=== PATIENT | female | born 1985 | race Caucasian/White ===

== ENCOUNTER 2023-09-23 13:42 | Emergency (ER) | payer OTHER ==
[2023-09-23 14:14] VITALS: TEMP 98.4; O2SAT 100
--- NOTE | 2023-09-23 14:41 | ERPHSYRPT ---
- History of Present Illness Time Seen by Provider: 09/23/23 13:59 Source: patient Exam Limitations: no limitations Patient Subjective Stated Complaint: Dizziness Triage Nursing Assessment: Patient ambulated back to ED and transferred self to bed. Patient A+O X3. Patient's skin pink, warm and dry. Patient complains of intermittent dizziness, headache and N/V since yesterday. Patient denies pain or discomfort. Physician History: 38-year-old female presented in the ER with complains of intermittent dizziness and lightheadedness since yesterday. 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 She had to work several hour which mostly in while standing. She was there earlier and started to feel lightheaded as if she was going to pass out. Patient thinks she probably got overheated. She has nausea and occasionally vomiting. It has happened multiple times in the past but she has never seek any medical attention before. Patient denies any headache currently. Denies any chest pain palpitations or shortness of breath associated with it. No fever or chills reported. Patient reports she was sweating when this happened. Allergies/Adverse Reactions: No Known Drug Allergies Allergy (Verified 09/23/23 14:05) Home Medications: Ativan 1 MG 1 mg PO BID PRN 03/11/12 [History] Axert 1 tab PO DAILY PRN PRN 03/11/12 [History] Folic Acid 1 mg 1 mg PO DAILY 03/11/12 [History] Imitrex 1 tab PO DAILY PRN PRN 03/11/12 [History] Klonopin 0.5 MG 0.5 mg PO TID PRN 03/11/12 [History] Levothyroxine Sodium 75 Mcg 75 mcg PO DAILY 03/11/12 [History] Nortriptyline HCl 1 tab PO DAILY PRN PRN 03/11/12 [History] Tonia-Colace Tablet 1 tab PO BID 03/11/12 [History] Propranolol HCl 120 mg PO DAILY 03/11/12 [History] Hx Tetanus, Diphtheria Vaccination/Date Given: No Hx Influenza Vaccination/Date Given: No Hx Pneumococcal Vaccination/Date Given: No Immunizations Up to Date: Yes Travel Risk - International Travel Have you traveled outside of the country in past 3 weeks: No - Emerging Infectious Disease Are you exhibiting symptoms associated with any current EIDs: No - Review of Systems Constitutional: Fatigue, Weakness Eyes: No Symptoms Ears, Nose, & Throat: No Symptoms Respiratory: No Symptoms Cardiac: No Symptoms Abdominal/Gastrointestinal: Nausea, Vomiting Genitourinary Symptoms: No Symptoms Musculoskeletal: No Symptoms Skin: No Symptoms Neurological: Dizziness, Headache Psychological: No Symptoms Endocrine: No Symptoms Hematologic/Lymphatic: No Symptoms - Past Medical History Pertinent Past Medical History: Yes Neurological History: Migraines ENT History: No Pertinent History Cardiac History: Hypertension Endocrine Medical History: Hypothyroidism Musculoskeletal History: No Pertinent History GI Medical History: No Pertinent History History: No Pertinent History Psycho-Social History: Anxiety Female Reproductive Disorders: No Pertinent History - Past Surgical History Past Surgical History: No Significant Family History: no pertinent family hx - Female History Hx Last Menstrual Period: 3 days ago Hx Now: No - Social History Smoking Status: Never smoker Exposure to second hand smoke: Yes Alcohol Use: None Drug Use: none Patient Lives Alone: No - Nursing Vital Signs Nursing Vital Signs: Initial Vital Signs Temperature 98.4 F 09/23/23 14:07 Pulse Rate 94 H 09/23/23 14:07 Respiratory Rate 20 09/23/23 14:07 Blood Pressure 160/116 09/23/23 14:07 O2 Sat by Pulse Oximetry 100 09/23/23 14:07 Pain Scale Pain Intensity 0 - Physical Exam General Appearance: no apparent distress, alert Eye Exam: PERRL/EOMI Ears, Nose, Throat Exam: normal ENT inspection Neck Exam: normal inspection, non-tender, supple, full range of motion Respiratory Exam: normal breath sounds, lungs clear Cardiovascular Exam: regular rate/rhythm, normal heart sounds Gastrointestinal/Abdomen Exam: soft, normal bowel sounds, tenderness Back Exam: normal inspection, normal range of motion Extremity Exam: normal inspection, normal range of motion Neurologic Exam: alert, oriented x 3, cooperative, 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 Skin Exam: normal color SpO2 Interpretation: normal SpO2: 100 O2 Delivery: Room Air - Course EKG Interpreted by Me: RATE, Sinus Rhythm, NORMAL AXIS, NORMAL INTERVALS, Q-wave Ordered Tests: Active Orders 24 hr Category Date Time Status Supervisor Lens Generating STAT Care 09/23/23 14:35 Completed EKG-ER Only STAT Care 09/23/23 14:34 Completed IV Insertion STAT Care 09/23/23 14:34 Completed CHEST 1 VIEW (PORTABLE) Stat Exams 09/23/23 14:35 Completed HEAD WITHOUT CONTRAST [CT] Stat Exams 09/23/23 14:38 Completed BMP Stat Lab 09/23/23 14:40 Completed CBC W DIFF Stat Lab 09/23/23 14:40 Completed CK-Creatinine Phosphokinase Stat Lab 09/23/23 14:40 Completed HCG QUALITATIVE, URINE Stat Lab 09/23/23 14:40 Completed PROTIME WITH INR Stat Lab 09/23/23 14:40 Completed PTT Stat Lab 09/23/23 14:40 Completed TROPONIN Q4H Lab 09/23/23 14:40 Completed Urine Triage Profile Stat Lab 09/23/23 14:36 Completed Medication Summary Discontinued Medications Generic Name Dose Route Start Last Admin Trade Name Freq PRN Reason Stop Dose Admin Sodium Chloride 1,000 mls @ 999 mls/hr 09/23/23 14:34 09/23/23 16:17 Sodium Chloride 0.9% 1000 Ml IV 09/23/23 15:34 Infused .Q1H1M STA Infusion Sodium Chloride Confirm 09/23/23 15:02 Sodium Chloride 0.9% 1000 Ml Administered 09/23/23 15:03 Dose 1,000 mls @ ud .ROUTE .[facility] Lab/Rad Data: Laboratory Result Diagrams 09/23/23 14:40 09/23/23 14:40 Laboratory Results 09/23/23 09/23/23 09/23/23 Range/Units 14:40 14:40 14:40 WBC (4.0-10.5) x10^3/uL RBC (4.1-5.4) x10^6/uL Hgb (12.0-16.0) g/dL Hct (35-47) % MCV (78-100) fL MCH (26-32) pg MCHC (32-36) g/dL RDW (11.5-14.0) % Plt Count (150-450) x10^3/uL MPV (7.5-11.0) fL Gran % (36.0-66.0) % Immature Gran % (Auto) (0.00-0.4) % Nucleat RBC Rel Count (0.00-0.1) % Eos # (Auto) (0-0.5) x10^3/uL Immature Gran # (Auto) (0.00-0.03) x10^3u/L Absolute Lymphs (auto) (1.0-4.6) x10^3/uL Absolute Monos (auto) (0.0-1.3) x10^3/uL Absolute Nucleated RBC (0.00-0.01) x10^3u/L Lymphocytes % (24.0-44.0) % Monocytes % (0.0-12.0) % Eosinophils % (0.00-5.0) % Basophils % (0.0-0.4) % Absolute Granulocytes (1.4-6.9) x10^3/uL Basophils # (0-0.4) x10^3/uL PT 10.4 (9.4-12.5) SECONDS INR 0.95 (0.8-3.0) APTT 26.1 (25.1-36.5) SECONDS Sodium (135-145) mmol/L Potassium (3.5-5.1) mmol/L Chloride (98-107) mmol/L Carbon Dioxide (22-30) mmol/L Anion Gap (5-15) MEQ/L BUN (7-17) mg/dL Creatinine (0.52-1.04) mg/dL Estimated GFR ML/MIN Glucose (74-106) mg/dL Calcium (8.4-10.2) mg/dL Creatine Kinase (30-135) U/L Troponin I < 0.012 (0.000-0.033) ng/mL Urine HCG, Qual NEGATIVE (NEGATIVE) Urine Opiates Level (NEGATIVE) Ur Methadone (NEGATIVE) Urine Barbiturates (NEGATIVE) Ur Phencyclidine (PCP) (NEGATIVE) Urine Amphetamine (NEGATIVE) U Benzodiazepine Level (NEGATIVE) Urine Cocaine (NEGATIVE) Urine Marijuana (THC) (NEGATIVE) 09/23/23 09/23/23 09/23/23 Range/Units 14:40 14:40 14:36 WBC 8.9 (4.0-10.5) x10^3/uL RBC 4.61 (4.1-5.4) x10^6/uL Hgb 13.7 (12.0-16.0) g/dL Hct 40.4 (35-47) % MCV 87.6 (78-100) fL MCH 29.7 (26-32) pg MCHC 33.9 (32-36) g/dL RDW 12.4 (11.5-14.0) % Plt Count 298 (150-450) x10^3/uL MPV 11.2 H (7.5-11.0) fL Gran % 60.4 (36.0-66.0) % Immature Gran % (Auto) 0.2 (0.00-0.4) % Nucleat RBC Rel Count 0.0 (0.00-0.1) % Eos # (Auto) 0.11 (0-0.5) x10^3/uL Immature Gran # (Auto) 0.02 (0.00-0.03) x10^3u/L Absolute Lymphs (auto) 2.59 (1.0-4.6) x10^3/uL Absolute Monos (auto) 0.71 (0.0-1.3) x10^3/uL Absolute Nucleated RBC 0.00 (0.00-0.01) x10^3u/L Lymphocytes % 29.0 (24.0-44.0) % Monocytes % 8.0 (0.0-12.0) % Eosinophils % 1.2 (0.00-5.0) % Basophils % 1.2 (0.0-0.4) % Absolute Granulocytes 5.39 (1.4-6.9) x10^3/uL Basophils # 0.11 (0-0.4) x10^3/uL PT (9.4-12.5) SECONDS INR (0.8-3.0) APTT (25.1-36.5) SECONDS Sodium 138 (135-145) mmol/L Potassium 4.1 (3.5-5.1) mmol/L Chloride 104 (98-107) mmol/L Carbon Dioxide 24 (22-30) mmol/L Anion Gap 13.3 (5-15) MEQ/L BUN 17 (7-17) mg/dL Creatinine 0.72 (0.52-1.04) mg/dL Estimated GFR 110.4 ML/MIN Glucose 93 (74-106) mg/dL Calcium 10.2 (8.4-10.2) mg/dL Creatine Kinase 127 (30-135) U/L Troponin I (0.000-0.033) ng/mL Urine HCG, Qual (NEGATIVE) Urine Opiates Level NEGATIVE (NEGATIVE) Ur Methadone NEGATIVE (NEGATIVE) Urine Barbiturates NEGATIVE (NEGATIVE) Ur Phencyclidine (PCP) NEGATIVE (NEGATIVE) Urine Amphetamine NEGATIVE (NEGATIVE) U Benzodiazepine Level NEGATIVE (NEGATIVE) Urine Cocaine NEGATIVE (NEGATIVE) Urine Marijuana (THC) NEGATIVE (NEGATIVE) - Progress Progress: improved Progress Note: 09/23/23 16:14 dwqd Counseled pt/family regarding: lab results, diagnosis, need for follow-up, rad results Medical Desision Making - Diagnostic Testing Diagnostic test were ordered, analyzed, and reviewed by me: Yes Radiological Interpretation: Reviewed by me - Departure Departure Disposition: Home Clinical Impression: Heat exhaustion, Lightheadedness Condition: Stable Critical Care Time: No Referrals: DOCTOR,NO FAMILY [Primary Care Provider] - Follow up with PCP 1 day Instructions: Syncope (fainting) Additional Instructions: drink plenty of fluids, follow up with PCP for re evaluation, return to ER for any worsening
[2023-09-23 14:42] LABS: Absolute Neutrophil Ct (ANC) 5.39 x10^3/uL (1.4-6.9); BASOPHIL % 1.2 % (0.0-0.4); Basophil (Absolute #) 0.11 x10^3/uL (0-0.4); Eosinophil % 1.2 % (0.00-5.0); Eosinophil (Absolute #) 0.11 x10^3/uL (0-0.5); Hematocrit 40.4 % (35-47); Hemoglobin 13.7 g/dL (12.0-16.0); IMMATURE GRAN # 0.02 x10^3u/L (0.00-0.03); IMMATURE GRAN % 0.2 % (0.00-0.4); Lymphocyte (Absolute #) 2.59 x10^3/uL (1.0-4.6); Mean Cell Volume 87.6 fL (78-100); Mean Corpuscular Hemoglobin 29.7 pg (26-32); Mean Corpuscular Hgb Concent. 33.9 g/dL (32-36); Mean Platelet Volume 11.2 fL (7.5-11.0); Monocyte (Absolute #) 0.71 x10^3/uL (0.0-1.3); Neutrophil % 60.4 % (36.0-66.0); Platelet Count 298 x10^3/uL (150-450); Red Blood Count 4.61 x10^6/uL (4.1-5.4); Red Cell Distribution Width 12.4 % (11.5-14.0); White Blood Count 8.9 x10^3/uL (4.0-10.5)
[2023-09-23 14:46] LABS: HCG URINE TEST NEGATIVE (NEGATIVE)
[2023-09-23 14:50] LABS: INR 0.95 (0.8-3.0); PROTIME 10.4 SECONDS (9.4-12.5); PTT 26.1 SECONDS (25.1-36.5)
[2023-09-23 14:53] LABS: ANION GAP 13.3 MEQ/L (5-15); Calcium 10.2 mg/dL (8.4-10.2); Creatinine 1 0.72 mg/dL (0.52-1.04); EST GLOMERULAR FILTRATION RATE 110.4 ML/MIN; Potassium 4.1 mmol/L (3.5-5.1)
--- NOTE | 2023-09-23 14:55 | XRAY ---
Indication: Dizziness. Comparison: March 14, 2019 Portable chest demonstrates normal heart, lungs, and bony thorax.
[2023-09-23] MEDS ORDERED: Sodium Chloride 0.9% 1000 ML 1,000 ML ONE (15:02)
[2023-09-23 15:03] LABS: Amphetamine,Urine NEGATIVE (NEGATIVE); Barbiturate,Urine NEGATIVE (NEGATIVE); Benzodiazepine,Urine NEGATIVE (NEGATIVE); Cocaine,Urine NEGATIVE (NEGATIVE); Methadone,Urine NEGATIVE (NEGATIVE); Opiate,Urine NEGATIVE (NEGATIVE); PCP,Urine NEGATIVE (NEGATIVE); THC,Urine NEGATIVE (NEGATIVE)
[2023-09-23] MEDS: Sodium Chloride 0.9% 1000 ML 1,000 ML IV STA (15:15)
--- NOTE | 2023-09-23 15:19 | XRAY ---
Indication: Dizziness. Multiple contiguous axial images obtained through the head without contrast. Comparison: April 23, 2011 Normal appearing brain parenchyma, ventricles, and bony calvarium. Visualized paranasal sinuses and mastoid air cells are clear. Impression: Continued normal CT head without contrast exam.
[2023-09-23 16:24] VITALS: BP 157/104; PULSE 84; RESP 16
== END 2023-09-23 16:24 | disposition home or self-care (01) ==
LOC: ED 13:42
DX: T67.5XXA Heat exhaustion, unspecified, initial encounter (principal); R42 Dizziness and giddiness; R11.2 Nausea with vomiting, unspecified; I10 Essential (primary) hypertension; Z79.899 Other long term (current) drug therapy
CPT/HCPCS: 36000; 36415; 70450; 71045; 80048; 80307; 81025; 82550; 84484; 85025; 85610; 85730; 93005; 93041; 96360; 99284

== ENCOUNTER 2024-08-15 07:22 | Emergency (ER) | payer OTHER ==
[2024-08-15 07:43] VITALS: RESP 18; TEMP 97.7; O2SAT 99
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
--- NOTE | 2024-08-15 09:02 | XRAY ---
Indication: Pain and swelling following injury. Comparison: None 3 view right hand demonstrates normal bones, articulation, and soft tissues.
--- NOTE | 2024-08-15 09:02 | XRAY ---
Indication: Pain and swelling following injury. Comparison: None 3 view left hand demonstrates minimal 3rd DIP degenerative changes. No other bony, articular, or soft tissue abnormalities.
[2024-08-15 09:09] VITALS: BP 139/99; PULSE 88
== END 2024-08-15 09:23 | disposition home or self-care (01) ==
LOC: ED 07:22
DX: S69.91XA Unspecified injury of right wrist, hand and finger(s), initial encounter (principal); S69.92XA Unspecified injury of left wrist, hand and finger(s), initial encounter; Y04.2XXA Assault by strike against or bumped into by another person, initial encounter; I10 Essential (primary) hypertension; Z79.899 Other long term (current) drug therapy
CPT/HCPCS: 73130; 99282; 99283